=== PATIENT | female | born 1980 | race Caucasian/White ===

== ENCOUNTER 2017-04-13 15:33 | Emergency (ER) | payer BC, OTHER ==
[~2017-04-13] VITALS: Ht 177.8 cm; Wt 63.5 kg
[2017-04-13 15:40] VITALS: BP 138/59
[2017-04-13] MEDS ORDERED: IOHEXOL 300 MG/ML 75 ML VIAL. ONE (16:18)
[2017-04-13] MEDS ORDERED: KETOROLAC 30 MG/ML VIAL. IV ONE ×2 (16:20→17:30)
[2017-04-13] MEDS ORDERED: IOHEXOL 300 MG/ML 75 ML VIAL. IV ONE (16:25)
[2017-04-13] MEDS ORDERED: IV NORMAL SALINE 1,000ML 1,000 ML IV ONE (16:30)
--- NOTE | 2017-04-13 16:31 | EKG ---
[address] [address] Test Date: 2017-04-13 Test Time: 16:25:17 Pat Name: JUAN VAZQUEZ Department: Room: Gender: F [employer] Q[employer] Lead: EVIN : 1980 Requested By: TOMAS MONTE Order Number: [id number] Reading MD: Abraham Chang Measurements Intervals [place] Rate: 71 P: 73 NH: 154 QRS: 64 QRSD: 84 T: 62 QT: 394 QTc: 433 Interpretive Statements SINUS RHYTHM Electronically Signed On 04-15-2017 8:52:05 CDT by Abraham Chang
--- NOTE | 2017-04-13 16:52 | PHYS DOC ---
Past History Past Medical History: No Pertinent History Past Surgical History: Other Alcohol Use: None Drug Use: Marijuana Adult General Chief Complaint Chief Complaint: BACK PAIN - NO INJURY HPI HPI Patient is a 36 year old F who presents with left upper back pain around her scapula. Patient states this morning she was attempting to lift a little laundered developed severe back pain by her scapula on the left that radiates to the front. Patient states her to take a deep breath. Patient states it hurts to move her arms above her head. Patient denies any cardiac history. Patient denies any risk factors or history of a DVT or PE. Patient denies any fevers. Patient has no other complaints. Review of Systems Review of Systems GEN: Denies fevers, chills, sweats HEENT: Denies blurred vision, sore throat CV: Chest pain RESP: Denies shortness of air, cough GI: Denies n/v/d NEURO: Denies confusion, dizziness MSK: Upper back pain Current Medications Current Medications Current Medications Medications (Trade) Dose Ordered Sig/Kristin Start Time Stop Time Status Last Admin Dose Admin Iohexol (Omnipaque 300 Mg/ml) 75 ml STK-MED ONCE 04/13/17 16:18 04/13/17 16:19 DC Ketorolac Tromethamine (Toradol) 30 mg 1X ONCE 04/13/17 16:20 04/13/17 16:21 DC Sodium Chloride 1,000 ml @ 1,000 mls/hr 1X ONCE 04/13/17 16:30 04/13/17 17:29 Allergies Allergies Allergies Coded Allergies Type Severity Reaction Last Updated Verified No Known Drug Allergies 04/13/17 No Physical Exam Physical Exam GEN.: No apparent distress. Alert and oriented. HEENT: Head is normocephalic, atraumatic NECK: Supple. LUNGS: CTAB. HEART: RRR, S1, S2 present. Peripheral pulses intact ABDOMEN: Soft, nontender. Positive bowel sounds. EXTREMITIES: Without any cyanosis. NEUROLOGIC: Normal speech, normal tone PSYCHIATRIC: Normal affect, normal mood. SKIN: No ulcerations BACK: Mild tenderness palpation of the left scapula, no midline tenderness to C/T/L-spine Current Patient Data Vital Signs Laboratory Tests Test 04/13/17 16:20 04/13/17 16:30 Urine Collection Type Unknown Urine Color Yellow Urine Clarity Cloudy Urine pH 8.5 Urine Specific [place] 1.015 Urine Protein Neg Urine Glucose (UA) Neg mg/dL Urine Ketones (Stick) Neg mg/dL Urine Blood Small Urine Nitrite Neg Urine Bilirubin Neg Urine Urobilinogen Dipstick 0.2 mg/dL Urine Leukocyte Esterase Neg Urine RBC Rare /HPF Urine WBC 0 /HPF Urine Squamous Epithelial Cells Many /LPF Urine Amorphous Sediment Present /HPF Urine Bacteria Few /HPF White Blood Count 6.1 x10^3/uL Red Blood Count 4.74 x10^6/uL Hemoglobin 11.2 g/dL Hematocrit 35.2 % Mean Corpuscular Volume 74 fL Mean Corpuscular Hemoglobin 24 pg Mean Corpuscular Hemoglobin Concent 32 g/dL Red Cell Distribution Width 14.4 % Platelet Count 265 x10^3/uL Neutrophils (%) (Auto) 72 % Lymphocytes (%) (Auto) 21 % Monocytes (%) (Auto) 5 % Eosinophils (%) (Auto) 1 % Basophils (%) (Auto) 1 % Neutrophils # (Auto) 4.4 x10^3uL Lymphocytes # (Auto) 1.3 x10^3/uL Monocytes # (Auto) 0.3 x10^3/uL Eosinophils # (Auto) 0.1 x10^3/uL Basophils # (Auto) 0.1 x10^3/uL Sodium Level 141 mmol/L Potassium Level 3.8 mmol/L Chloride Level 103 mmol/L Carbon Dioxide Level 29 mmol/L Anion Gap 9 Blood Urea Nitrogen 10 mg/dL Creatinine 0.9 mg/dL Estimated GFR (Cockcroft-Gault) 71.3 BUN/Creatinine Ratio 11 Glucose Level 96 mg/dL Calcium Level 8.7 mg/dL Total Bilirubin 0.3 mg/dL Aspartate Amino Transf (AST/SGOT) 14 U/L Alanine Aminotransferase (ALT/SGPT) 18 U/L Alkaline Phosphatase 64 U/L Troponin I Quantitative < 0.017 ng/mL Total Protein 7.3 g/dL Albumin 4.4 g/dL Albumin/Globulin Ratio 1.5 Current Medications Medications (Trade) Dose Ordered Sig/Kristin Route PRN Reason Start Time Stop Time Status Last Admin Dose Admin Ketorolac Tromethamine (Toradol) 30 mg 1X ONCE IV 04/13/17 16:20 04/13/17 16:21 DC 04/13/17 16:20 Sodium Chloride 1,000 ml @ 1,000 mls/hr 1X ONCE IV 04/13/17 16:30 04/13/17 17:29 DC 04/13/17 16:30 Iohexol (Omnipaque 300 Mg/ml) 75 ml 1X ONCE IV 04/13/17 16:25 04/13/17 16:26 DC 04/13/17 16:46 Iohexol (Omnipaque 300 Mg/ml) 75 ml STK-MED ONCE .ROUTE 04/13/17 16:18 04/13/17 16:19 DC Ketorolac Tromethamine (Toradol) 30 mg 1X ONCE IV 04/13/17 17:30 04/13/17 17:31 Ondansetron HCl (Zofran) 4 mg 1X ONCE IV 04/13/17 17:30 04/13/17 17:31 Vital Signs Date Time Temp Pulse Resp B/P (MAP) Pulse Ox O2 Delivery O2 Flow Rate FiO2 04/13/17 15:40 98.2 87 20 100 Room Air Lab Results Current Medications Medications (Trade) Dose Ordered Sig/Kristin Route PRN Reason Start Time Stop Time Status Last Admin Dose Admin Ketorolac Tromethamine (Toradol) 30 mg 1X ONCE IV 04/13/17 16:20 04/13/17 16:21 DC Sodium Chloride 1,000 ml @ 1,000 mls/hr 1X ONCE IV 04/13/17 16:30 04/13/17 17:29 Iohexol (Omnipaque 300 Mg/ml) 75 ml 1X ONCE IV 04/13/17 16:25 04/13/17 16:26 DC Iohexol (Omnipaque 300 Mg/ml) 75 ml STK-MED ONCE .ROUTE 04/13/17 16:18 04/13/17 16:19 DC EKG EKG 1627: EKG shows normal sinus rhythm rate of 71 no STEMI [] Radiology/Procedures Radiology/Procedures Chest x-ray NAD [] CTA chest with contrast Indication: Shallow breathing. Difficult to draw deep inspiration this morning. Left upper chest and right lower lung pain. 20 year smoking history. . Comparison: No comparison is available. Technique: After bolus of intravenous contrast, CT imaging was performed of the chest. MIP reconstructions were obtained. Exposure: One or more of the following individualized dose reduction techniques were utilized for this examination: 1. Automated exposure control 2. Adjustment of the mA and/or kV according to patient size 3. Use of iterative reconstruction technique. Findings: Pulmonary arteries:No evidence of pulmonary embolism. Thoracic aorta: Suboptimally opacified due to bolus timing but no evidence of an aneurysm. Difficult to exclude dissection. Great vessel origins: Suboptimally opacified due to bolus timing. Thyroid gland:Visualized aspect is unremarkable. Lymph nodes:No significant enlargement Heart: No significant pericadial effusion. Pleural spaces: No significant effusion Lungs: Calcified nodule identified in each lung, compatible with granuloma. No dominant mass or airspace consolidation. Trachea and central airways: Patent Bones: There is some hypertrophic bone formation at the right facet joint at approximately T10-T11. This appears to narrow the right neural foramen. Upper abdomen: Slices were obtained through the upper abdomen, but are of limited usefulness due to technique. Surgical clips at gallbladder fossa Impression: 1. Negative for pulmonary embolism or acute abnormality in the chest. 2. Isolated facet joint hypertrophic changes of the right T10-T11 facet joint. This appears to narrow the right neural foramen. If there are referable clinical symptoms, consider further evaluation with outpatient thoracic spine MRI. Electronically signed by: Isai Castañeda MD (04/13/2017 5:15 PM) [id number] Course & Med Decision Making Course & Med Decision Making Pertinent Labs and Imaging studies reviewed. (See chart for details) ED course: 1731: Updated patient on lab work and CT and x-ray results. On reexamination patient's family much better discussed possible etiologies to her pain which at this point is most likely muscle skeletal or pleurisy. Recommended short-term follow-up with PCP and return symptoms increase MDM: After reviewing the chart, CC/HPI/PMH, physical exam, [lab results], [ radiological results], I do not believe the patient having acute [place] (HEART score =1), PE, thoracic aortic dissection. I've a low clinical suspicion for this pain being cardiac in nature and believe this could be most likely muscle skeletal or pleurisy. Recommended patient follow PCP in one to 2 days. Additional verbal discharge instructions were provided to the patient and that if symptoms get worse or any new symptoms arise that are worrisome to the patient she is to return to the emergency room immediately [] Dragon Disclaimer Dragon Disclaimer This chart was dictated in whole or in part using Voice Recognition software in a busy, high-work load, and often noisy Emergency Department environment. It may contain unintended and wholly unrecognized errors or omissions. Departure Departure: Impression: Primary Impression: Chest pain Additional Impression: Upper back pain Disposition: 01 HOME, SELF-CARE Condition: IMPROVED Patient Instructions: Back Pain in , Chest Pain (Nonspecific), Easy-to -Read Additional Instructions: Please follow-up with her family doctor in one to 2 days Scripts Ibuprofen (IBUPROFEN) 800 Mg Tablet 1 TAB PO TID, #30 TAB Prov: TOMAS MONTE DO 04/13/17 Problem Qualifiers TOMAS MONTE DO Apr 13, 2017 16:52
[2017-04-13 16:55] LABS: BASO # 0.1 x10^3/uL (0.0-0.2); BASO % 1 % (0-3); EOS # 0.1 x10^3/uL (0.0-0.7); EOS % 1 % (0-3); HEMATOCRIT 35.2 % (36.0-47.0); HEMOGLOBIN 11.2 g/dL (12.0-15.5); LYMPH # 1.3 x10^3/uL (1.0-4.8); LYMPH % 21 % (24-48); MEAN CORPUSCULAR HEMOGLOBIN 24 pg (25-35); MEAN CORPUSCULAR HGB CONC 32 g/dL (31-37); MEAN CORPUSCULAR VOLUME 74 fL (79-100); MONO # 0.3 x10^3/uL (0.0-1.1); MONO % 5 % (0-9); NEUT # 4.4 x10^3uL (1.8-7.7); NEUT % 72 % (31-73); PLATELET COUNT 265 x10^3/uL (140-400); RED BLOOD COUNT 4.74 x10^6/uL (3.50-5.40); RED CELL DISTRIBUTION WIDTH 14.4 % (11.5-14.5); WHITE BLOOD COUNT 6.1 x10^3/uL (4.0-11.0)
[2017-04-13 17:02] LABS: BILIRUBIN,URINE NEG (NEG); CLARITY,URINE CLOUDY; COLOR,URINE YELLOW; GLUCOSE,URINE NEG (NEG); NITRITE,URINE NEG (NEG); UROBILINOGEN,URINE 0.2 mg/dL (0.2 mg/dL)
[2017-04-13 17:03] LABS: ALBUMIN 4.4 g/dL (3.4-5.0); ALBUMIN/GLOBULIN RATIO 1.5 (1.0-1.7); CALCIUM 8.7 mg/dL (8.5-10.1); CREATININE 0.9 mg/dL (0.6-1.0); GFR 71.3; POTASSIUM 3.8 mmol/L (3.5-5.1); TOTAL BILIRUBIN 0.3 mg/dL (0.2-1.0); TOTAL PROTEIN 7.3 g/dL (6.4-8.2)
[2017-04-13 17:06] LABS: BACTERIA,URINE FEW /HPF (0-FEW); RBC,URINE RARE /HPF (0-2); SQUAMOUS EPITHELIAL CELL,UR MANY /LPF; WBC,URINE 0 /HPF (0-4)
[2017-04-13 17:07] LABS: AMORPHOUS SEDIMENT,UR PRESENT /HPF
--- NOTE | 2017-04-13 17:18 | RAD ---
CTA chest with contrast Indication: Shallow breathing. Difficult to draw deep inspiration this morning. Left upper chest and right lower lung pain. 20 year smoking history. . Comparison: No comparison is available. Technique: After bolus of intravenous contrast, CT imaging was performed of the chest. MIP reconstructions were obtained. Exposure: One or more of the following individualized dose reduction techniques were utilized for this examination: 1. Automated exposure control 2. Adjustment of the mA and/or kV according to patient size 3. Use of iterative reconstruction technique. Findings: Pulmonary arteries:No evidence of pulmonary embolism. Thoracic aorta: Suboptimally opacified due to bolus timing but no evidence of an aneurysm. Difficult to exclude dissection. Great vessel origins: Suboptimally opacified due to bolus timing. Thyroid gland:Visualized aspect is unremarkable. Lymph nodes:No significant enlargement Heart: No significant pericadial effusion. Pleural spaces: No significant effusion Lungs: Calcified nodule identified in each lung, compatible with granuloma. No dominant mass or airspace consolidation. Trachea and central airways: Patent Bones: There is some hypertrophic bone formation at the right facet joint at approximately T10-T11. This appears to narrow the right neural foramen. Upper abdomen: Slices were obtained through the upper abdomen, but are of limited usefulness due to technique. Surgical clips at gallbladder fossa Impression: 1. Negative for pulmonary embolism or acute abnormality in the chest. 2. Isolated facet joint hypertrophic changes of the right T10-T11 facet joint. This appears to narrow the right neural foramen. If there are referable clinical symptoms, consider further evaluation with outpatient thoracic spine MRI. Electronically signed by: Isai Castañeda MD (04/13/2017 5:15 PM) [facility]
--- NOTE | 2017-04-13 17:22 | RAD ---
PORTABLE CHEST 1V Clinical Indication: chest pain Comparison: Chest radiograph dated 03/22/2008 Findings: Normal lung volume. No focal consolidations. Remote granulomatous disease. Normal pulmonary vasculature. No pleural effusion or pneumothorax. The cardiomediastinal silhouette is normal. The great vessels of the thorax are normal. No acute osseous abnormality. IMPRESSION: No acute cardiopulmonary process.
[2017-04-13] MEDS ORDERED: ONDANSETRON PF 4 MG/2 ML VIAL. IV ONE (17:30)
[2017-04-13] MEDS ORDERED: IBUP800T19 PO (17:35)
== END 2017-04-13 17:53 | disposition home or self-care (01) ==
LOC: ER 15:33
DX: M54.89 Other dorsalgia (principal); R07.89 Other chest pain; F12.10 Cannabis abuse, uncomplicated
CPT/HCPCS: 36415; 71010; 71275; 80053; 81001; 84484; 85027; 93005; 96361; 96374; 96375; 99285; J1885; J2405; Q9967; J7030

== ENCOUNTER 2017-05-15 07:27 | Emergency (ER) | payer OTHER ==
[~2017-05-15 07:27] MED LIST: IBUP800T19 PO
--- NOTE | 2017-05-15 08:32 | PHYS DOC ---
Past History Past Medical History: No Pertinent History Past Surgical History: , Other Alcohol Use: None Drug Use: Marijuana Adult General Chief Complaint Chief Complaint: FLANK PAIN HPI HPI Patient is a 36-year-old female who presents with left upper quadrant/left flank pain that began about 5 PM yesterday. "It feels like a kidney pain". When it started she took ibuprofen 800 mg, it did improve, then it woke her up at 3: 30 in the morning and was severe. She took 800 of ibuprofen again and it improved again. It worsened again about 6 AM and was somewhat severe but it improved shortly after arrival here to the ED. She's had nausea but no vomiting. The pain goes to the left upper quadrant of her abdomen and also radiates down toward her left groin area. Patient has had kidney pain before because she had hydronephrosis when she was that was attributed to a big baby. No history of kidney stones. She has had no UTI symptoms. She denies , she had a menstrual period 1-1/2 weeks ago. She denies fever or chills. She has been otherwise healthy. Review of Systems Review of Systems Constitutional: Denies fever or chills [] Respiratory: Denies cough or shortness of breath [] GI: As in history of present illness : As in history of present illness Allergies Allergies Allergies Coded Allergies Type Severity Reaction Last Updated Verified No Known Drug Allergies 04/13/17 No Physical Exam Physical Exam Constitutional: Well developed, well nourished, no acute distress, non-toxic appearance. Alert, warm and dry. HENT: Normocephalic, atraumatic, bilateral external ears normal, nose normal. [] Eyes: conjunctiva normal, no discharge. [] Neck: Normal range of motion, no stridor. [] Cardiovascular:Heart rate regular rhythm, no murmur [] Lungs & Thorax: Bilateral breath sounds clear to auscultation [] Abdomen: Bowel sounds normal, soft, no tenderness, no masses, no pulsatile masses. Skin: Warm, dry, no erythema, no rash. [] Back: No tenderness, no CVA tenderness. [] Extremities: No tenderness, no cyanosis, no clubbing, ROM intact, no edema. [] Neurologic: Alert and oriented X 3, normal motor function, normal sensory function, no focal deficits noted. [] Current Patient Data Vital Signs Vital Signs Date Time Temp Pulse Resp B/P (MAP) Pulse Ox O2 Delivery O2 Flow Rate FiO2 05/15/17 07:30 97.9 82 18 100 Room Air EKG EKG [] Radiology/Procedures Radiology/Procedures PROCEDURE: US PELVIS W/TV US PELVIS W/TV History:Abnormal CT Comparison: CT this same day Findings:Multiple transabdominal sonographic images of the pelvis are submitted. Uterus measured 10.8 x 4.8 x 6.4 cm. Endometrium measures 0.8 cm, minimal internal fluid. Gallbladder is visualized, internal simple appearing urine. The there is a heterogeneous complex hypoechoic collection in the cul-de-sac up to 6.9 x 5 x 6.1 cm. Is also heterogeneous area of hypoechogenicity located superior to the uterus up to 8.5 x 4.6 cm. Transvaginal ultrasound: Multiple transvaginal sonographic images of the pelvis are submitted. The right ovary is measured at 3.1 x 5.2 x 4.9 cm. There is a large hypoechoic lesion apparently arising from the right ovary with some internal echoes, measuring 6.9 x 5.7 x 3.6 cm. There is normal color flow of the right ovary. There is a another smaller hypoechoic lesion of the right ovary with diffuse internal echoes up to 2.5 x 1.6 x 2.8 cm. Endometrium measured up to approximately 1.1 cm in overall thickness, minimal internal fluid. Uterus measured 10.8 x 5.4 x 8.4 cm. Located superior and anterior to the uterus, there is a large heterogeneous collection with diffuse internal echoes up to 11.5 x 5 x 4.4 cm in size, apparently believed to be contiguous with the left adnexal region. On CT, this was believed to be due to hyperdensity in the urinary bladder although the urinary bladder is seen separately. Margins of the left ovary are difficult to confidently identify, probably on the order of 3.4 cm x 2.3 cm in size, some internal color flow demonstrated. There is a very small quantity of the free fluid in the cul-de-sac. Impression: 1.As seen on CT, there are large complex cystic lesions of the pelvis bilaterally including a large focus which extends anterior and superior to uterus probably arising from the left ovary. Ovarian cystic neoplasm is in the differential possibilities. Endometriosis would be in the differential considerations. Larger cystic lesion accounts for the area of hyperdensity of the more central anterior pelvis, normal urinary bladder seen separately. 2. There is a small quantity of fluid in the endometrial cavity. There is a trace quantity of free fluid. REASON: lt flank pain PROCEDURE: CT ABDOMEN PELVIS WO CONTRAST CT ABDOMEN PELVIS WO CONTRAST History:Left-sided flank pain for one day Technique: Noncontrast CT imaging was performed of the abdomen and pelvis, multiplanar reconstruction images submitted. Exposure: One or more of the following individualized dose reduction techniques were utilized for this exam: 1. Automated exposure control.2. Adjustment of the mA and/or KV according to patient size.3. Use of iterative reconstruction technique. Comparison: None Findings: There is abnormal hyperdensity in the urinary bladder lumen. There are loculated cystic foci both in the dependent pelvis and in the adnexal regions bilaterally greater on the right. More defined loculated fluid collection posteriorly in the pelvis measures 5.2 cm transverse x 4.8 cm AP, focus in the right adnexal region anteriorly up to 3.8 cm transverse x 3.6 cm AP. There is some displacement of the sigmoid colon to the left. There is no hydronephrosis of either kidney, no renal calculus or ureteral calculus identified. Accurate evaluation of the abdominal visceral organs is limited without intravenous contrast, no obvious abnormality of the liver, spleen, pancreas. Accurate evaluation of bowel is limited without oral contrast. There is no significant bowel dilatation, free air, free fluid. Tiny 3 to 4 mm noncalcified left lower lobe pulmonary nodule is not likely of clinical significance in a patient this age. There has been cholecystectomy. There is no adrenal nodularity. Impression: 1. There are loculated foci of fluid in the pelvis both dependently and also the adnexal regions greater on the right. Sterility of the fluid collections is unknown. Ovarian cystic neoplasm is not excluded. There is also abnormal hyperdensity in the urinary bladder which may be due to the presence of proteinaceous fluid although mass not excluded. 2. There is no hydronephrosis or urolithiasis of either kidney. DICTATED AND SIGNED BY: SKYLER GARCIA MD DATE: 05/15/17 4025 CC: LALA COLLADO MD; PCP,UNKNOWN ~ [] Course & Med Decision Making Course & Med Decision Making Pertinent Labs and Imaging studies reviewed. (See chart for details) 36-year-old female presents with intermittent, somewhat severe, left flank and left abdominal pain, it does sound suspicious for a kidney stone. I discussed with the patient that we will check some labs and get a CT scan. She is not having severe pain at this time, it let up slowly after arrival here in the ED. Urinalysis unremarkable, test negative. Labs showing anemia suggestive of iron deficiency. Discussed with patient. CT scan of the abdomen and pelvis read by the radiologist is negative for kidney stone. Negative for other kidney/ureter abnormality. I discussed the results with the radiologist. He noted loculated fluid in the pelvis and adnexal regions, concern for ovarian cystic neoplasm, also abnormal density of the urinary bladder. We agreed to follow up with a ultrasound. Pelvic ultrasound with transvaginal was done and read by the radiologist. The bladder appears normal on ultrasound. Right ovary with some large apparent cysts noted. A fluid collection superior and anterior to the uterus, contiguous with the left adnexal region, was responsible for the original CT reading of possible abnormal bladder. This is a separate structure. Radiologist feels that ovarian cystic neoplasm in addition to endometriosis may be differential diagnoses. The pelvic free fluid is described as trace. I believe that this significant size of cystic structures in the pelvis is likely responsible for the patient's symptoms of left abdominal and left flank pain today. One large lesion is near the bladder and may be pressing on the bladder. patient needs to have [facility] [facility] [facility] follow-up for these lesions. Patient does have a [employer] doctor, Dr. Roth, who she says she will be able to follow-up with. I discussed these results with the patient and her . I emphasized the importance of calling her [facility] [facility] [facility] doctor on Wednesday to get in to be seen. We will give the patient images on a disc and also I printed off the reports for her to take with her. [] Dragon Disclaimer Dragon Disclaimer This chart was dictated in whole or in part using Voice Recognition software in a busy, high-work load, and often noisy Emergency Department environment. It may contain unintended and wholly unrecognized errors or omissions. Departure Departure: Impression: Primary Impression: Acute left flank pain Additional Impressions: Cyst of right ovary Cystic lesion of pelvic viscera Disposition: HOME, SELF-CARE Condition: STABLE Referrals: PCP,UNKNOWN (PCP) Additional Instructions: As we discussed, CT scan did not show any kidney stones. CT scan and pelvic ultrasound showed cysts on the right ovary and also a fluid-filled structure that may be attached to the left ovary, this could be some type of a left ovarian cyst. On CT scan and ultrasound, they can tell the difference between fluid and solid tissue, but it may be necessary for a [facility] specialist to look at these structures to determine what is really going on. Call Wednesday to make an appointment with your [facility] [facility] [facility] specialist. You need to get in as soon as possible to be seen. Take x-ray reports and ultrasound and CT disc with you. Until then, ibuprofen 800 mg every 6-8 hours as needed for pain. If needed for more severe pain, hydrocodone as prescribed. You may combine that with ibuprofen. Hydrocodone is an opiate and may be addictive, use sparingly. It may be sedating and constipating, do not take while driving. Lab tests also showed that you are anemic, discuss this with your [facility] [facility] [facility] doctor as well. Scripts Hydrocodone Bit/Acetaminophen (NORCO 5-325 TABLET) 1 Each Tablet 1 TAB PO PRN Q6HRS Y for PAIN, #20 TAB 0 Refills Prov: LALA COLLADO MD 05/15/17 Problem Qualifiers LALA COLLADO MD May 15, 2017 08:32
[2017-05-15 08:38] LABS: BASO # 0.1 x10^3/uL (0.0-0.2); BASO % 2 % (0-3); EOS # 0.1 x10^3/uL (0.0-0.7); EOS % 4 % (0-3); HEMATOCRIT 36.2 % (36.0-47.0); HEMOGLOBIN 11.4 g/dL (12.0-15.5); LYMPH # 1.1 x10^3/uL (1.0-4.8); LYMPH % 30 % (24-48); MEAN CORPUSCULAR HEMOGLOBIN 23 pg (25-35); MEAN CORPUSCULAR HGB CONC 32 g/dL (31-37); MEAN CORPUSCULAR VOLUME 74 fL (79-100); MONO # 0.2 x10^3/uL (0.0-1.1); MONO % 6 % (0-9); NEUT # 2.3 x10^3uL (1.8-7.7); NEUT % 59 % (31-73); PLATELET COUNT 262 x10^3/uL (140-400); RED BLOOD COUNT 4.86 x10^6/uL (3.50-5.40); RED CELL DISTRIBUTION WIDTH 14.9 % (11.5-14.5); WHITE BLOOD COUNT 3.8 x10^3/uL (4.0-11.0)
--- NOTE | 2017-05-15 08:42 | RAD ---
CT ABDOMEN PELVIS WO CONTRAST History:Left-sided flank pain for one day Technique: Noncontrast CT imaging was performed of the abdomen and pelvis, multiplanar reconstruction images submitted. Exposure: One or more of the following individualized dose reduction techniques were utilized for this exam: 1. Automated exposure control.2. Adjustment of the mA and/or KV according to patient size.3. Use of iterative reconstruction technique. Comparison: None Findings: There is abnormal hyperdensity in the urinary bladder lumen. There are loculated cystic foci both in the dependent pelvis and in the adnexal regions bilaterally greater on the right. More defined loculated fluid collection posteriorly in the pelvis measures 5.2 cm transverse x 4.8 cm AP, focus in the right adnexal region anteriorly up to 3.8 cm transverse x 3.6 cm AP. There is some displacement of the sigmoid colon to the left. There is no hydronephrosis of either kidney, no renal calculus or ureteral calculus identified. Accurate evaluation of the abdominal visceral organs is limited without intravenous contrast, no obvious abnormality of the liver, spleen, pancreas. Accurate evaluation of bowel is limited without oral contrast. There is no significant bowel dilatation, free air, free fluid. Tiny 3 to 4 mm noncalcified left lower lobe pulmonary nodule is not likely of clinical significance in a patient this age. There has been cholecystectomy. There is no adrenal nodularity. Impression: 1. There are loculated foci of fluid in the pelvis both dependently and also the adnexal regions greater on the right. Sterility of the fluid collections is unknown. Ovarian cystic neoplasm is not excluded. There is also abnormal hyperdensity in the urinary bladder which may be due to the presence of proteinaceous fluid although mass not excluded. 2. There is no hydronephrosis or urolithiasis of either kidney.
[2017-05-15 08:53] LABS: ALBUMIN 4.1 g/dL (3.4-5.0); ALBUMIN/GLOBULIN RATIO 1.4 (1.0-1.7); CALCIUM 8.2 mg/dL (8.5-10.1); CREATININE 0.9 mg/dL (0.6-1.0); GFR 71.3; POTASSIUM 3.9 mmol/L (3.5-5.1); TOTAL BILIRUBIN 0.3 mg/dL (0.2-1.0); TOTAL PROTEIN 7.1 g/dL (6.4-8.2)
[2017-05-15 09:16] LABS: BILIRUBIN,URINE NEG (NEG); CLARITY,URINE HAZY; COLOR,URINE YELLOW; GLUCOSE,URINE NEG (NEG)
[2017-05-15 09:17] LABS: BACTERIA,URINE FEW /HPF (0-FEW); NITRITE,URINE NEG (NEG); RBC,URINE 0 /HPF (0-2); UROBILINOGEN,URINE 0.2 mg/dL (0.2 mg/dL); WBC,URINE 0 /HPF (0-4)
[2017-05-15 09:18] LABS: SQUAMOUS EPITHELIAL CELL,UR MOD /LPF
[2017-05-15] MEDS ORDERED: fentaNYL PF 100 MCG/2 ML VIAL IV PRN (09:45)
--- NOTE | 2017-05-15 11:31 | RAD ---
US PELVIS W/TV History:Abnormal CT Comparison: CT this same day Findings:Multiple transabdominal sonographic images of the pelvis are submitted. Uterus measured 10.8 x 4.8 x 6.4 cm. Endometrium measures 0.8 cm, minimal internal fluid. Gallbladder is visualized, internal simple appearing urine. The there is a heterogeneous complex hypoechoic collection in the cul-de-sac up to 6.9 x 5 x 6.1 cm. Is also heterogeneous area of hypoechogenicity located superior to the uterus up to 8.5 x 4.6 cm. Transvaginal ultrasound: Multiple transvaginal sonographic images of the pelvis are submitted. The right ovary is measured at 3.1 x 5.2 x 4.9 cm. There is a large hypoechoic lesion apparently arising from the right ovary with some internal echoes, measuring 6.9 x 5.7 x 3.6 cm. There is normal color flow of the right ovary. There is a another smaller hypoechoic lesion of the right ovary with diffuse internal echoes up to 2.5 x 1.6 x 2.8 cm. Endometrium measured up to approximately 1.1 cm in overall thickness, minimal internal fluid. Uterus measured 10.8 x 5.4 x 8.4 cm. Located superior and anterior to the uterus, there is a large heterogeneous collection with diffuse internal echoes up to 11.5 x 5 x 4.4 cm in size, apparently believed to be contiguous with the left adnexal region. On CT, this was believed to be due to hyperdensity in the urinary bladder although the urinary bladder is seen separately. Margins of the left ovary are difficult to confidently identify, probably on the order of 3.4 cm x 2.3 cm in size, some internal color flow demonstrated. There is a very small quantity of the free fluid in the cul-de-sac. Impression: 1.As seen on CT, there are large complex cystic lesions of the pelvis bilaterally including a large focus which extends anterior and superior to uterus probably arising from the left ovary. Ovarian cystic neoplasm is in the differential possibilities. Endometriosis would be in the differential considerations. Larger cystic lesion accounts for the area of hyperdensity of the more central anterior pelvis, normal urinary bladder seen separately. 2. There is a small quantity of fluid in the endometrial cavity. There is a trace quantity of free fluid.
[2017-05-15] MEDS ORDERED: HYDR-971 PO (11:57)
[2017-05-15 12:15] VITALS: BP 104/54
== END 2017-05-15 12:25 | disposition home or self-care (01) ==
LOC: ER 07:27
DX: N83.201 Unspecified ovarian cyst, right side (principal); N94.89 Other specified conditions associated with female genital organs and menstrual cycle
CPT/HCPCS: 36415; 74176; 76830; 76856; 80053; 81001; 81025; 85025; 96374; 99285; J3010

== ENCOUNTER 2017-11-21 12:06 | Emergency (ER) | payer OTHER ==
[~2017-11-21 12:06] MED LIST changes: +HYDR-971 PO
--- NOTE | 2017-11-21 13:04 | PHYS DOC ---
Past History Past Medical History: No Pertinent History Past Surgical History: Other Smoking: Less than 1pk/day Alcohol Use: None Drug Use: Marijuana Adult General Chief Complaint Chief Complaint: LOWER BACK PAIN OR INJURY [facility] HPI 37-year-old female patient states she had an accidental fall one week ago from 14 stairs and landed with her gluteal area on each stair. Patient denies other injuries and focal neurodeficit. Patient complaining of pain lower back and tailbone area that getting worse with sitting down and special position. Patient states she took ibuprofen without improvement of her pain and wanted to make sure she doesn't have fracture. Review of Systems Review of Systems Constitutional: Denies fever or chills [] Eyes: Denies change in visual acuity, redness, or eye pain [] HENT: Denies nasal congestion or sore throat [] Respiratory: Denies cough or shortness of breath [] Cardiovascular: No additional information not addressed in HPI [] GI: Denies abdominal pain, nausea, vomiting, bloody stools or diarrhea [] : Denies dysuria or hematuria [] Musculoskeletal: Reports back pain [] Integument: Denies rash or skin lesions [] Neurologic: Denies headache, focal weakness or sensory changes [] Endocrine: Denies polyuria or polydipsia [] All other systems were reviewed and found to be within normal limits, except as documented in this note. Allergies Allergies Allergies Coded Allergies Type Severity Reaction Last Updated Verified Sulfa (Sulfonamide Antibiotics) Allergy Unknown 05/15/17 Yes cephalexin Allergy Unknown 05/15/17 Yes Physical Exam Physical Exam Constitutional: Well developed, well nourished, mild distress, non-toxic appearance. [] HENT: Normocephalic, atraumatic, bilateral external ears normal, oropharynx moist, no oral exudates, nose normal. [] Eyes: PERRLA, EOMI, conjunctiva normal, no discharge. [] Neck: Normal range of motion, no tenderness, supple, no stridor. [] Cardiovascular:Heart rate regular rhythm, no murmur [] Lungs & Thorax: Bilateral breath sounds clear to auscultation [] Abdomen: Bowel sounds normal, soft, no tenderness, no masses, no pulsatile masses. [] Skin: Warm, dry, no erythema, no rash. [] Back: No CVA tenderness , mild tenderness in the lower sacral area. [] Extremities: No tenderness, no cyanosis, no clubbing, ROM intact, no edema. [] Neurologic: Alert and oriented X 3, normal motor function, normal sensory function, no focal deficits noted. [] Psychologic: Affect normal, judgement normal, mood normal. [] Current Patient Data Vital Signs Vital Signs Date Time Temp Pulse Resp B/P (MAP) Pulse Ox O2 Delivery O2 Flow Rate FiO2 11/21/17 12:15 98.0 96 16 99 Room Air EKG EKG [] Radiology/Procedures Radiology/Procedures [] [address] [address] IMAGING REPORT Signed PATIENT: JUAN VAZQUEZ ACCOUNT: [id number] : 1980 LOCATION: ER AGE: 37 SEX: F EXAM STATUS: REG ER ORD. PHYSICIAN: HEMANT BILL MD REASON: injury PROCEDURE: SACRUM & COCCYX 3V Three-view study of the sacrum and coccyx History: Fell down stairs one week ago. Persistent sacrum and coccyx pain Findings: In the lateral view, there is cortical disruption of the lower sacrum. This was not seen on a previous CT study of the abdomen and pelvis dated May 15, 2017. Therefore, this is consistent with an acute nondisplaced fracture. No osteolytic process is evident. No diastases of either SI joint is seen. IMPRESSION: Posttraumatic nondisplaced transverse fracture of the lower sacrum. DICTATED AND SIGNED BY: PAZ MOCK MD DATE: 11/21/17 3959 CC: EMILY PRECIADO MD; HEMANT BILL MD ~ Course & Med Decision Making Course & Med Decision Making Pertinent Imaging studies reviewed. (See chart for details) Evaluation of patient in ER showed 37-year-old female patient with a fall one week ago and complaining of pain in lower sacral area. Patient had tenderness in her sacral area and x-ray showed nondisplaced distal sacral fracture. Patient did not want to have pain medication in ER. Patient instructed to use doughnut shaped pillow and follow with her primary care physician. discharge: I've spoken with the patient and/or caregivers. I've explained the patient's condition, diagnosis and treatment plan based on information available to me at this time. I've answered the patient's and/or caregivers questions and addressed any concerns. The patient and/or caregivers have a good understanding the patient's diagnosis, condition and treatment plan as can be expected at this point. Vital signs have been stabilized. The patient's condition is stable for discharge from the emergency department. The patient will pursue further outpatient evaluation with her primary care provider or other designated consulting physician as outlined in the discharge instructions. Patient and/or caregivers are agreeable to this plan of care and follow-up instructions have been explained in detail. The patient and/or caregivers have received these instructions in written format and expressed understanding of these discharge instructions. The patient and her caregivers are aware that if any significant change in condition or worsening of symptoms should prompt him to immediately return to this of the closest emergency department. If an emergent department is not readily available I would encourage him to call 911. [] Dragon Disclaimer Dragon Disclaimer This electronic medical record was generated, in whole or in part, using a voice recognition dictation system. Departure Departure: Impression: Primary Impression: Sacral fracture, closed Disposition: HOME, SELF-CARE (At 1343) Condition: IMPROVED Referrals: EMILY PRECIADO MD (PCP) Patient Instructions: Tailbone Injury Additional Instructions: Use doughnut-shaped pillow Follow-up with your primary care physician in 3-5 days Return to ER if not getting better Scripts Hydrocodone Bit/Acetaminophen (NORCO 5-325 TABLET) 1 Each Tablet 1 TAB PO PRN Q6HRS Y for PAIN, #20 TAB 0 Refills Prov: HEMANT BILL MD 11/21/17 Ibuprofen (IBUPROFEN) 800 Mg Tablet 1 TAB PO TID, #30 TAB Prov: HEMANT BILL MD 11/21/17 HEMANT BILL MD Nov 21, 2017 13:04
--- NOTE | 2017-11-21 13:10 | RAD ---
Three-view study of the sacrum and coccyx History: Fell down stairs one week ago. Persistent sacrum and coccyx pain Findings: In the lateral view, there is cortical disruption of the lower sacrum. This was not seen on a previous CT study of the abdomen and pelvis dated May 15, 2017. Therefore, this is consistent with an acute nondisplaced fracture. No osteolytic process is evident. No diastases of either SI joint is seen. IMPRESSION: Posttraumatic nondisplaced transverse fracture of the lower sacrum.
[2017-11-21] MEDS ORDERED: IBUP800T19 PO (13:46)
[2017-11-21] MEDS ORDERED: HYDR-971 PO (13:46)
[2017-11-21 13:50] VITALS: BP 118/68
== END 2017-11-21 13:50 | disposition home or self-care (01) ==
LOC: ER 12:06
DX: S32.10XA Unspecified fracture of sacrum, initial encounter for closed fracture (principal); F12.10 Cannabis abuse, uncomplicated; F17.200 Nicotine dependence, unspecified, uncomplicated; Z88.1 Allergy status to other antibiotic agents; Z88.2 Allergy status to sulfonamides; W10.8XXA Fall (on) (from) other stairs and steps, initial encounter; Y93.89 Activity, other specified; Y99.8 Other external cause status; Y92.89 Other specified places as the place of occurrence of the external cause
CPT/HCPCS: 72220; 99284

== ENCOUNTER → 2020-09-26 | Outpatient (CLI) | payer SELFPAY ==
[~2020-09-26] MED LIST changes: +HYDR-3165 PO; -HYDR-971 PO
--- NOTE | 2020-09-26 08:43 | RAD ---
EXAM: Thyroid sonogram. HISTORY: Thyromegaly. TECHNIQUE: Sonographic imaging of the thyroid was performed. COMPARISON: None. FINDINGS: The right thyroid lobe measures 6.4 x 2.0 x 1.6 cm. The left thyroid lobe measures 6.3 x 2. 0 x 1.6 cm. The thyroid isthmus measures 3.5 mm. There is a mixed cystic and solid nodule within the inferior right thyroid lobe measuring 2.3 x 2.0 x 1.0 cm. There is a 3 mm tiny benign nodule or cyst within the mid right thyroid lobe. There is a nemo id circumscribed hypoechoic lesion with eccentric echogenic component within the superior left thyroi d lobe measuring 1.2 x 1.2 x 0.7 cm. There is a heterogeneous predominantly isoechoic circumscribed n odule within the inferior left thyroid lobe measuring 1.4 x 1.0 x 0.8 cm. IMPRESSION: 1. Prominent thyroid size. 2. 2.3 cm mixed cystic and solid nodule within the inferior right thyroid lobe (TI-RADS category 2). Category 2 lesions are likely benign. 3. 1.2 cm nodule within the superior left thyroid lobe (TI-RADS category 4). Category 4 lesions of th is size can be followed with short-term sonographic follow-up in 6 months. 4. 1.4 cm nodule within the inferior left thyroid lobe (TI-RADS category 3). Category 3 lesions of th is size can be followed with short-term sonographic follow-up in 6 months. Electronically signed by: Sigrid Mora MD (09/26/2020 8:40 AM) [id number]
== END ==
LOC: US 07:54
PROVIDERS: ATTEND Family Medicine
DX: E04.2 Nontoxic multinodular goiter (principal)
CPT/HCPCS: 76536